=== PATIENT | female | born 1995 | race Caucasian/White ===

== ENCOUNTER 2021-08-02 15:26 | Emergency (ER) | payer OTHER ==
[~2021-08-02] VITALS: Ht 157.5 cm; Wt 116.1 kg
[2021-08-02] MEDS ORDERED: HORIZANT600 MG PO (16:53)
[2021-08-02] MEDS ORDERED: PROZAC20 MG PO (16:53)
[2021-08-02] MEDS ORDERED: MECLIZINE HCL25 MG PO (19:28)
[2021-08-02] MEDS ORDERED: SUDOGEST30 MG PO (19:28)
== END 2021-08-02 20:50 | disposition home or self-care (01) ==
LOC: ED 15:26
DX: H83.01 Labyrinthitis, right ear (principal); H69.81 Other specified disorders of Eustachian tube, right ear; K59.00 Constipation, unspecified; Z79.899 Other long term (current) drug therapy; Z20.822 Contact with and (suspected) exposure to COVID-19; G47.30 Sleep apnea, unspecified
CPT/HCPCS: 74018; 80053; 81001; 83690; 84703; 85025; 99284-25; A9270; C9803; J1100; U0003